=== PATIENT | female | born 1970 | race Caucasian/White ===

== ENCOUNTER 2023-03-07 14:45 | Emergency (ER) | payer OTHER ==
[~2023-03-07] VITALS: Ht 167.6 cm; Wt 83.9 kg
[2023-03-07] MEDS ORDERED: MORPHINE SULFATE INJ 4 MG/ML DISP.SYRIN ONE (15:00)
[2023-03-07] MEDS ORDERED: MORPHINE SULFATE INJ 2 MG/ML DISP.SYRIN IM ONE (15:00)
--- NOTE | 2023-03-07 15:07 | NUR ---
Patient bibfather, c/o left shoulder pain s/p fall. No loc. IV intact and patent, saline lock. kept comfortable, will continue to monitor accordingly.
[2023-03-07] MEDS ORDERED: CYCLOBENZAPRINE 10 MG TABLET PO ONE ×2 (15:30)
[2023-03-07] MEDS ORDERED: PROPOFOL 20 ML IV ONE (15:41)
[2023-03-07] MEDS ORDERED: CYCLOBENZAPRINE 10 MG TABLET ONE (15:41)
[2023-03-07] MEDS ORDERED: PROPOFOL 200 MG/20 ML VIAL IV ONE (16:00)
--- NOTE | 2023-03-07 16:09 | NUR ---
patient put under moderate sedation. 80mg of propofol pushed. Randy reduction of left shoulder by DR. Marino. patient put in sling. xray done for confirmation
[2023-03-07] MEDS ORDERED: IBUP-1953 PO (16:27)
[2023-03-07] MEDS ORDERED: TYL2T PO (16:27)
[2023-03-07] MEDS ORDERED: CYCL5TAB PO (16:58)
[2023-03-07 17:26] VITALS: BP 125/74
--- NOTE | 2023-03-07 17:26 | NUR ---
Patient discharged to home in stable condition, ambulating. Written and verbal after care instructions given. Patient verbalizes understanding of instruction.
== END 2023-03-07 17:27 | disposition home or self-care (01) ==
LOC: ER 14:53
DX: S43.085A Other dislocation of left shoulder joint, initial encounter (principal); Z79.899 Other long term (current) drug therapy; Z88.0 Allergy status to penicillin; W01.0XXA Fall on same level from slipping, tripping and stumbling without subsequent striking against object, initial encounter; Y93.89 Activity, other specified; Y92.410 Unspecified street and highway as the place of occurrence of the external cause; Y99.8 Other external cause status
CPT/HCPCS: 99285; 23650; 99152; 73030 ×2; 96372; J2704; J2270; J7030; G0500